=== PATIENT | male | born 1980 | race Caucasian/White ===

== ENCOUNTER 2020-10-02 17:15 | Emergency (ER) | payer MEDICAID ==
[~2020-10-02] VITALS: Ht 182.8 cm; Wt 81.6 kg
[~2020-10-02 17:15] MED LIST: BACTRIM DS 8001 TA1 PO; CYCLOBENZAPRINE10 MG PO; KEFLEX500 MG PO; MOTRIN800 MG PO; Motrin,Rufen800 MG PO
[2020-10-02 17:55] LABS: BASO # 0.1 10*3/uL (0.0-0.1); BASO % 0.4 % (0.0-1.0); EOS # 0.3 10*3/uL (0.0-0.4); EOS % 1.9 % (1.0-4.0); HEMATOCRIT 42.7 % (42.0-52.0); LYMPH # 2.8 10*3/uL (1.3-4.4); LYMPH % 21.1 % (27.0-41.0); MEAN CORPUSCULAR HGB 27.8 pg (27.0-31.0); MEAN CORPUSCULAR HGB CONC 31.6 g/dl (33.0-37.0); MEAN PLATELET VOLUME 10.1 fl (9.6-12.3); MONO # 0.7 10*3/uL (0.1-1.0); MONO % 5.4 % (3.0-9.0); NEUT # 9.5 10*3/uL (2.3-7.9); NEUT % 70.8 % (47.0-73.0); PLATELET COUNT AUTOMATED 358 10*3/uL (130-400); RED BLOOD COUNT 4.85 10*6/uL (4.50-5.90); RED CELL DISTRI WIDTH 14.2 % (0-14.5); WHITE BLOOD COUNT 13.5 10*3/uL (4.8-10.8)
[2020-10-02 18:11] LABS: ALBUMIN 3.6 gm/dl (3.1-4.5); ALKALINE PHOSPHATASE 50 U/L (45-117); BUN 10 mg/dl (7-24); CHLORIDE 107 mmol/L (98-107); POTASSIUM 3.1 mmol/L (3.5-5.1); SGOT/AST 15 IU/L (3-35); SGPT/ALT 18 U/L (12-78); SODIUM 141 mmol/L (136-145); TOTAL PROTEIN 7.3 gm/dL (6.4-8.2)
[2020-10-02 18:13] LABS: ACETAMINOPHEN (TYLENOL) < 5.0 ug/ml (10-30); ETHYL ALCOHOL < 3.0 mg/dl (<3)
== END 2020-10-02 21:00 | disposition home or self-care (01) ==
LOC: ED 17:15
PROVIDERS: Physician Assistant
DX: F43.21 Adjustment disorder with depressed mood (principal); R45.851 Suicidal ideations; Z59.0 Homelessness; F32.9 Major depressive disorder, single episode, unspecified; F17.200 Nicotine dependence, unspecified, uncomplicated

== ENCOUNTER 2021-09-27 06:02 | Emergency (ER) | payer OTHER ==
[~2021-09-27] VITALS: Ht 182.8 cm; Wt 86.2 kg
[2021-09-27 07:10] LABS: BASO # 0.1 10*3/uL (0.0-0.1); BASO % 0.6 % (0.0-1.0); EOS # 0.1 10*3/uL (0.0-0.4); EOS % 1.1 % (1.0-4.0); LYMPH # 0.7 10*3/uL (1.3-4.4); LYMPH % 6.8 % (27.0-41.0); MEAN CELL VOLUME 85.8 fl (80.0-94.0); MEAN CORPUSCULAR HGB 27.9 pg (27.0-31.0); MEAN CORPUSCULAR HGB CONC 32.5 g/dl (33.0-37.0); MEAN PLATELET VOLUME 10.1 fl (9.6-12.3); MONO # 0.5 10*3/uL (0.1-1.0); MONO % 4.9 % (3.0-9.0); NEUT # 9.1 10*3/uL (2.3-7.9); NEUT % 86.3 % (47.0-73.0); PLATELET COUNT AUTOMATED 246 10*3/uL (130-400); RED BLOOD COUNT 5.13 10*6/uL (4.50-5.90); RED CELL DISTRI WIDTH 13.2 % (0-14.5); WHITE BLOOD COUNT 10.6 10*3/uL (4.8-10.8)
[2021-09-27 07:26] LABS: ALKALINE PHOSPHATASE 53 U/L (45-117); BUN 21 mg/dl (7-24); CHLORIDE 108 mmol/L (98-107); CREATININE 1.66 mg/dL (0.70-1.30); POTASSIUM 3.9 mmol/L (3.5-5.1); SGOT/AST 16 IU/L (3-35); SGPT/ALT 18 U/L (12-78); SODIUM 141 mmol/L (136-145); TOTAL PROTEIN 7.5 gm/dL (6.4-8.2)
[2021-09-27 07:38] LABS: ACETAMINOPHEN (TYLENOL) < 5.0 ug/ml (10-30)
[2021-09-27 07:39] LABS: ETHYL ALCOHOL < 3.0 mg/dl (<3)
[2021-09-27 17:00] LABS: BILIRUBIN Negative (Negative); BLOOD Negative (Negative); CLARITY Clear (Clear); COLOR Yellow (Yellow); GLUCOSE Negative (Negative); KETONE Trace (Negative); LEUKO ESTERASE Negative (Negative); NITRITE Negative (Negative); SPECIFIC GRAVITY 1.015 (1.001-1.030)
[2021-09-27 17:08] LABS: URINE AMPHETAMINES > 1000 (1000ng/ml); URINE BARBITURATES < 200 (200ng/ml); URINE BENZODIAZEPINES < 200 (200ng/ml); URINE CANNABINOIDS (THC) > 50 (50ng/ml); URINE COCAINE > 300 (300ng/ml); URINE METHADONE < 300 (300ng/ml); URINE OPIATES < 300 (300ng/ml)
[2021-09-27 17:11] LABS: URINE PHENCYCLIDINE < 25 (25ng/ml)
[2021-09-27 17:20] LABS: BACTERIA 2+; MUCOUS 3+
== END 2021-09-27 18:37 | disposition home or self-care (01) ==
LOC: ED 06:02
PROVIDERS: Emergency Medicine
DX: R45.1 Restlessness and agitation (principal)

== ENCOUNTER 2021-10-02 06:17 | Emergency (ER) | payer OTHER | END 2021-10-02 06:30 | disposition left against medical advice (07) | LOC: ED 06:17 | DX: Z53.21 Procedure and treatment not carried out due to patient leaving prior to being seen by health care provider (principal) ==

== ENCOUNTER 2021-10-02 11:54 | Emergency (ER) | payer OTHER | END 2021-10-02 12:25 | disposition home or self-care (01) | LOC: ED 11:54 | DX: Z63.79 Other stressful life events affecting family and household (principal) ==

== ENCOUNTER 2021-10-27 18:28 | Emergency (ER) | payer OTHER ==
[~2021-10-27] VITALS: Ht 182.8 cm; Wt 83.9 kg
[2021-10-27] MEDS ORDERED: ARIPIPRAZOLE30 MG PO ×2 (18:36→20:58)
[2021-10-27] MEDS ORDERED: TRAZODONE50 MG PO ×3 (18:37→21:03)
[2021-10-27] MEDS ORDERED: MIRTAZAPINE15 M2 PO ×2 (18:37→20:58)
[2021-10-27 19:32] LABS: BASO # 0.1 10*3/uL (0.0-0.1); BASO % 0.6 % (0.0-1.0); EOS % 0.4 % (1.0-4.0); HEMATOCRIT 44.4 % (42.0-52.0); LYMPH # 1.7 10*3/uL (1.3-4.4); LYMPH % 16.6 % (27.0-41.0); MEAN CELL VOLUME 84.7 fl (80.0-94.0); MEAN CORPUSCULAR HGB 28.1 pg (27.0-31.0); MEAN CORPUSCULAR HGB CONC 33.1 g/dl (33.0-37.0); MEAN PLATELET VOLUME 9.9 fl (9.6-12.3); MONO # 0.5 10*3/uL (0.1-1.0); MONO % 4.9 % (3.0-9.0); NEUT # 7.9 10*3/uL (2.3-7.9); NEUT % 77.1 % (47.0-73.0); PLATELET COUNT AUTOMATED 258 10*3/uL (130-400); RED BLOOD COUNT 5.24 10*6/uL (4.50-5.90); RED CELL DISTRI WIDTH 13.2 % (0-14.5); WHITE BLOOD COUNT 10.2 10*3/uL (4.8-10.8)
[2021-10-27 19:48] LABS: ALKALINE PHOSPHATASE 48 U/L (45-117); BUN 16 mg/dl (7-24); CHLORIDE 108 mmol/L (98-107); CREATININE 1.15 mg/dL (0.70-1.30); LIPASE 97 U/L (73-393); POTASSIUM 3.8 mmol/L (3.5-5.1); SGOT/AST 12 IU/L (3-35); SGPT/ALT 19 U/L (12-78); SODIUM 139 mmol/L (136-145); TOTAL PROTEIN 7.6 gm/dL (6.4-8.2)
[2021-10-27] MEDS ORDERED: METRONIDAZOLE500 M1 PO (20:42)
[2021-10-27] MEDS ORDERED: VISTARIL50 MG PO (20:42)
[2021-10-27] MEDS ORDERED: CIPRO500 MG PO (20:42)
[2021-10-27] MEDS ORDERED: PREDNISONE20 M1 PO (20:42)
== END 2021-10-27 21:10 | disposition home or self-care (01) ==
LOC: ED 18:28
PROVIDERS: Emergency Medicine
DX: K52.9 Noninfective gastroenteritis and colitis, unspecified (principal); F41.9 Anxiety disorder, unspecified; F17.200 Nicotine dependence, unspecified, uncomplicated

== ENCOUNTER 2022-01-15 23:35 | Emergency (ER) | payer OTHER ==
[~2022-01-15 23:35] MED LIST changes: +ARIPIPRAZOLE30 MG PO; +CIPRO500 MG PO; +METRONIDAZOLE500 M1 PO; +MIRTAZAPINE15 M2 PO; +PREDNISONE20 M1 PO; +TRAZODONE50 MG PO; +VISTARIL50 MG PO
[2022-01-15] MEDS ORDERED: ATARAX,VISTARIL50 MG PO (23:47)
== END 2022-01-15 23:46 | disposition home or self-care (01) ==
LOC: ED 23:35
DX: F41.9 Anxiety disorder, unspecified (principal); R07.89 Other chest pain; Z79.899 Other long term (current) drug therapy

== ENCOUNTER 2022-02-13 06:52 | Emergency (ER) | payer OTHER ==
[~2022-02-13] VITALS: Ht 182.8 cm; Wt 72.6 kg
[~2022-02-13 06:52] MED LIST changes: +ATARAX,VISTARIL50 MG PO
== END 2022-02-13 07:15 | disposition left against medical advice (07) ==
LOC: ED 06:52
DX: Z00.8 Encounter for other general examination (principal); Z53.21 Procedure and treatment not carried out due to patient leaving prior to being seen by health care provider

== ENCOUNTER 2022-05-23 12:54 | Emergency (ER) | payer OTHER | END 2022-05-23 13:14 | disposition left against medical advice (07) | LOC: ED 12:54 | DX: Z53.21 Procedure and treatment not carried out due to patient leaving prior to being seen by health care provider (principal) ==

== ENCOUNTER 2022-06-21 11:04 | Emergency (ER) | payer OTHER ==
[~2022-06-21] VITALS: Ht 180.3 cm; Wt 90.7 kg
[2022-06-21 12:08] LABS: BASO % 0.3 % (0.0-1.0); EOS # 0.3 10*3/uL (0.0-0.4); EOS % 2.9 % (1.0-4.0); HEMATOCRIT 42.2 % (42.0-52.0); LYMPH # 1.5 10*3/uL (1.3-4.4); LYMPH % 16.8 % (27.0-41.0); MEAN CELL VOLUME 85.9 fl (80.0-94.0); MEAN CORPUSCULAR HGB 27.7 pg (27.0-31.0); MEAN CORPUSCULAR HGB CONC 32.2 g/dl (33.0-37.0); MEAN PLATELET VOLUME 9.7 fl (9.6-12.3); MONO # 0.4 10*3/uL (0.1-1.0); NEUT # 6.6 10*3/uL (2.3-7.9); NEUT % 74.5 % (47.0-73.0); PLATELET COUNT AUTOMATED 258 10*3/uL (130-400); RED BLOOD COUNT 4.91 10*6/uL (4.50-5.90); RED CELL DISTRI WIDTH 13.2 % (0-14.5); WHITE BLOOD COUNT 8.9 10*3/uL (4.8-10.8)
[2022-06-21 12:26] LABS: ALKALINE PHOSPHATASE 46 U/L (46-116); BUN 14 mg/dl (9-23); CHLORIDE 103 mmol/L (98-107); CREATININE 1.09 mg/dL (0.70-1.30); POTASSIUM 3.7 mmol/L (3.4-5.1); SGPT/ALT 12 U/L (10-49); TOTAL PROTEIN 6.8 gm/dL (6.0-8.0)
== END 2022-06-21 16:27 | disposition home or self-care (01) ==
LOC: ED 11:04
PROVIDERS: Internal Medicine
DX: T40.601A Poisoning by unspecified narcotics, accidental (unintentional), initial encounter (principal); Y92.89 Other specified places as the place of occurrence of the external cause

== ENCOUNTER 2022-10-15 13:13 | Emergency (ER) | payer OTHER ==
[~2022-10-15] VITALS: Ht 182.8 cm; Wt 72.6 kg
[2022-10-15 13:48] LABS: BASO # 0.1 10*3/uL (0.0-0.1); BASO % 0.6 % (0.0-1.0); EOS # 0.3 10*3/uL (0.0-0.4); EOS % 2.7 % (1.0-4.0); LYMPH # 2.2 10*3/uL (1.3-4.4); LYMPH % 17.3 % (27.0-41.0); MEAN CELL VOLUME 84.7 fl (80.0-94.0); MEAN CORPUSCULAR HGB 28.2 pg (27.0-31.0); MEAN CORPUSCULAR HGB CONC 33.3 g/dl (33.0-37.0); MEAN PLATELET VOLUME 10.2 fl (9.6-12.3); MONO # 0.7 10*3/uL (0.1-1.0); MONO % 5.9 % (3.0-9.0); NEUT # 9.1 10*3/uL (2.3-7.9); NEUT % 73.3 % (47.0-73.0); PLATELET COUNT AUTOMATED 295 10*3/uL (130-400); RED BLOOD COUNT 5.43 10*6/uL (4.50-5.90); RED CELL DISTRI WIDTH 13.2 % (0-14.5); WHITE BLOOD COUNT 12.4 10*3/uL (4.8-10.8)
[2022-10-15 14:01] LABS: ACT PARTIAL THROMBO TIME 32.2 SECONDS (20.0-32.1)
[2022-10-15 14:13] LABS: ALKALINE PHOSPHATASE 53 U/L (46-116); BUN 19 mg/dl (9-23); CHLORIDE 102 mmol/L (98-107); CPK 848 U/L (34-171); POTASSIUM 3.9 mmol/L (3.4-5.1); SGPT/ALT 35 U/L (10-49)
[2022-10-15 14:23] LABS: BILIRUBIN Negative (Negative); BLOOD Negative (Negative); CLARITY Clear (Clear); COLOR Yellow (Yellow); GLUCOSE Negative (Negative); KETONE Negative (Negative); LEUKO ESTERASE Negative (Negative); NITRITE Negative (Negative); PH 6.5 (4.5-8.0); SPECIFIC GRAVITY 1.025 (1.001-1.030); UROBILINOGEN 0.2 E.U./dl (0.0-1.0)
[2022-10-15 14:26] LABS: ETHYL ALCOHOL < 3.0 mg/dl (<3)
[2022-10-15 14:30] LABS: URINE AMPHETAMINES Positive (1000ng/ml); URINE BARBITURATES Negative (200ng/ml); URINE BENZODIAZEPINES Negative (200ng/ml); URINE CANNABINOIDS (THC) Positive (50ng/ml); URINE COCAINE Negative (300ng/ml); URINE METHADONE Negative (300ng/ml); URINE OPIATES Negative (300ng/ml); URINE PHENCYCLIDINE Negative (25ng/ml)
[2022-10-15 14:47] LABS: MUCOUS 1+
[2022-10-15 14:48] LABS: BACTERIA TRACE
== END 2022-10-15 15:05 | disposition home or self-care (01) ==
LOC: ED 13:13
PROVIDERS: Emergency Medicine
DX: F19.10 Other psychoactive substance abuse, uncomplicated (principal); Z79.899 Other long term (current) drug therapy

== ENCOUNTER 2022-10-19 21:44 | Emergency (ER) | payer OTHER ==
[~2022-10-19] VITALS: Ht 182.8 cm; Wt 83.9 kg
== END 2022-10-19 22:33 ==
LOC: ED 21:44
DX: F22 Delusional disorders (principal); F31.9 Bipolar disorder, unspecified

== ENCOUNTER 2024-09-07 05:34 | Emergency (ER) | payer OTHER ==
[~2024-09-07] VITALS: Ht 182.8 cm; Wt 81.6 kg
[2024-09-07 06:11] LABS: BASO # 0.1 10*3/uL (0.0-0.1); BASO % 0.7 % (0.0-1.0); EOS # 0.1 10*3/uL (0.0-0.4); EOS % 1.4 % (1.0-4.0); HEMATOCRIT 45.9 % (42.0-52.0); MEAN CELL VOLUME 82.7 fl (80.0-94.0); MEAN CORPUSCULAR HGB 26.7 pg (27.0-31.0); MEAN CORPUSCULAR HGB CONC 32.2 g/dl (33.0-37.0); MEAN PLATELET VOLUME 10.5 fl (9.6-12.3); MONO # 0.6 10*3/uL (0.1-1.0); MONO % 6.4 % (3.0-9.0); NEUT # 6.9 10*3/uL (2.3-7.9); NEUT % 71.9 % (47.0-73.0); PLATELET COUNT AUTOMATED 254 10*3/uL (130-400); RED BLOOD COUNT 5.55 10*6/uL (4.50-5.90); RED CELL DISTRI WIDTH 13.3 % (0-14.5); WHITE BLOOD COUNT 9.5 10*3/uL (4.8-10.8)
[2024-09-07 06:23] LABS: ALKALINE PHOSPHATASE 50 U/L (46-116); BUN 13 mg/dl (9-23); CHLORIDE 106 mmol/L (98-107); POTASSIUM 3.2 mmol/L (3.4-5.1); SGPT/ALT 14 U/L (5-49); TOTAL PROTEIN 7.9 gm/dL (6.0-8.0)
[2024-09-07 06:25] LABS: ETHYL ALCOHOL < 3.0 mg/dl (<3)
[2024-09-07] MEDS ORDERED: POTASSIUM CHLORIDE 20 MEQ TAB PO ONE (06:45)
[2024-09-07 08:12] LABS: BILIRUBIN Negative (Negative); BLOOD Negative (Negative); CLARITY Clear (Clear); COLOR Yellow (Yellow); GLUCOSE Negative (Negative); KETONE Trace (Negative); LEUKO ESTERASE Negative (Negative); NITRITE Negative (Negative)
[2024-09-07 08:30] LABS: URINE AMPHETAMINES Positive (1000ng/ml); URINE BARBITURATES Negative (200ng/ml); URINE BENZODIAZEPINES Negative (200ng/ml); URINE CANNABINOIDS (THC) Negative (50ng/ml); URINE COCAINE Negative (300ng/ml); URINE METHADONE Negative (300ng/ml); URINE OPIATES Negative (300ng/ml); URINE PHENCYCLIDINE Negative (25ng/ml)
[2024-09-07 08:31] LABS: MUCOUS 1+; RBC 0-2 rbc/hpf (0-2)
[2024-09-07] MEDS ORDERED: hydrOXYzine pamoate 25 MG CAP PO ONE (09:00)
== END 2024-09-07 10:09 | disposition left against medical advice (07) ==
LOC: ED 05:34
PROVIDERS: Internal Medicine
DX: F15.10 Other stimulant abuse, uncomplicated (principal); Z53.29 Procedure and treatment not carried out because of patient's decision for other reasons; F41.9 Anxiety disorder, unspecified; F31.9 Bipolar disorder, unspecified; R44.3 Hallucinations, unspecified; Z79.899 Other long term (current) drug therapy